=== PATIENT | male | born 1990 | race American Indian/Alaskan Native ===

== ENCOUNTER 2018-10-04 17:48 | Emergency (ER) | payer SELFPAY ==
[2018-10-04 17:53] VITALS: BP 124/77; PULSE 65; RESP 18; TEMP 99; O2SAT 98
--- NOTE | 2018-10-04 18:30 | C.PDOC ---
Time Seen by Provider: 10/04/18 17:57 Chief Complaint (Nursing): Lower Extremity Problem/Injury Past Medical History Vital Signs: Last Vital Signs Temp 99.0 F 10/04/18 17:51 Pulse 65 10/04/18 17:51 Resp 18 10/04/18 17:51 BP 124/77 10/04/18 17:51 Pulse Ox 98 10/04/18 17:51 Primary Care Provider: Non [facility] Provider, - Social History Hx Alcohol Use: No Hx Substance Use: No ED Course And Treatment O2 Sat by Pulse Oximetry: 98 Disposition - Disposition Referrals: [facility] [Outside] Disposition: HOME/ ROUTINE Disposition Time: 18:27 Condition: STABLE Additional Instructions: Follow up with PMD within 1-2 days. Return to ED if feel worse. Prescriptions: Gabapentin [Neurontin] 300 mg PO QPM #30 cap Instructions: Paresthesias (DC) - Clinical Impression Clinical Impression: Leg paresthesia
--- NOTE | 2018-10-04 18:32 | C.PDOC ---
History Of Present Illness 28 year old male presents to ED with complaint of intermittent chronic lower back pain. Patient has never been seen for these symptoms. Patient states that last week he felt his left leg and foot get tingling/numbing sensation. Patient denies leg pain/weakness or open wounds. Time Seen by Provider: 10/04/18 17:57 Chief Complaint (Nursing): Lower Extremity Problem/Injury History Per: Patient History/Exam Limitations: no limitations Onset/Duration Of Symptoms: Days (7) Current Symptoms Are (Timing): Still Present Past Medical History Reviewed: Historical Data, Nursing Documentation, Vital Signs Vital Signs: Last Vital Signs Temp 99.0 F 10/04/18 17:51 Pulse 65 10/04/18 17:51 Resp 18 10/04/18 17:51 BP 124/77 10/04/18 17:51 Pulse Ox 98 10/04/18 17:51 Primary Care Provider: Non [facility] Provider, - Medical History PMH: No Chronic Diseases Surgical History: No Surg Hx Family History: States: Unknown Family Hx - Social History Hx Alcohol Use: No Hx Substance Use: No Review Of Systems Constitutional: Negative for: Fever, Chills, Weakness Musculoskeletal: Positive for: Back Pain (lower back) Skin: Negative for: Rash, Lesions Neurological: Positive for: Numbness. Negative for: Weakness Physical Exam - Physical Exam Appears: Well, Non-toxic, No Acute Distress Skin: Normal Color, Warm, Dry Head: Atraumatic, Normacephalic Eye(s): bilateral: Normal Inspection Neck: Normal ROM, No Midline Cervical Tenderness, No Paracervical Tenderness, Supple Chest: Symmetrical, No Deformity Cardiovascular: Rhythm Regular, No Murmur Respiratory: No Accessory Muscle Use, No Rales, No Rhonchi, No Wheezing Back: No CVA Tenderness, No Vertebral Tenderness, No Paraspinal Tenderness Extremity: No Calf Tenderness, Capillary Refill (<2 seconds) Extremity: Bilateral: Atraumatic, Normal Color And Temperature, Normal ROM Pulses: Left Radial: Normal, Right Radial: Normal Neurological/Psych: Oriented x3, Normal Speech, Normal Cognition, Normal Motor, Normal Sensation Gait: Steady ED Course And Treatment O2 Sat by Pulse Oximetry: 98 (in RA) Pulse Ox Interpretation: Normal - Other Rad LS-spine X-ray X-Ray: Interpreted by Me Interpretation: no acute finding Progress Note: X-ray of LS spine ordered for patient. X-ray negative. Patient given prescription for Neurotin Once a day to take before bed. Patient was instructed to f/u in clinic within 2-3 days. Disposition - Disposition Referrals: [facility] [Outside] Disposition: HOME/ ROUTINE Disposition Time: 18:27 Condition: STABLE Additional Instructions: Follow up with PMD within 1-2 days. Return to ED if feel worse. Prescriptions: Gabapentin [Neurontin] 300 mg PO QPM #30 cap Instructions: Paresthesias (DC) Forms: [employer] (C[place]) - Clinical Impression Clinical Impression: Leg paresthesia - PA / [employer] / Resident Statement MD/DO has reviewed & agrees with the documentation as recorded. (Christina Mock) - Scribe Statement The provider has reviewed the documentation as recorded by the Scribe (Christina Mock) All medical record entries made by the Scribe were at my direction and personally dictated by me. I have reviewed the chart and agree that the record accurately reflects my personal performance of the history, physical exam, medical decision making, and the department course for this patient. I have also personally directed, reviewed, and agree with the discharge instructions and disposition.
--- NOTE | 2018-10-05 07:10 | RAD ---
Date of service: 10/04/2018 PROCEDURE: Radiographs of the Lumbar Spine. HISTORY: left leg paresthesia COMPARISON: None TECHNIQUE: 5 views obtained. FINDINGS: BONES: Vertebral body heights are maintained. Normal lumbar lordosis maintained. DISC SPACES: Disc space heights are preserved. OTHER FINDINGS: None. IMPRESSION: No lumbar spine fracture or subluxation identified.
== END 2018-10-04 18:34 | disposition home or self-care (01) ==
LOC: C.ER 17:48
DX: R20.2 Paresthesia of skin (principal)